=== PATIENT | female | born 1935 | race Caucasian/White ===

== ENCOUNTER 2021-03-19 20:53 | Inpatient (IN) | payer MEDICARE, OTHER ==
[~2021-03-19] VITALS: Ht 165.1 cm; Wt 68.0 kg
--- NOTE | 2021-03-19 21:12 | NUR ---
Dr. Sheets at bedside for mse.
[2021-03-19] MEDS ORDERED: IV NORMAL SALINE 1000 ML BAG IV ONE (21:30)
[2021-03-19] MEDS ORDERED: ONDANSETRON 4 MG/2 ML VIAL IV ONE (21:30)
[2021-03-19] MEDS ORDERED: ONDANSETRON 4 MG/2 ML VIAL ONE (21:33)
[2021-03-19 21:42] LABS: HEMATOCRIT 36.6 % (31.2-41.9); MEAN CORPUSCULAR VOLUME 91.3 fL (75.5-95.3); PLATELET COUNT (AUTO) 213 K/uL (179-408)
[2021-03-19 21:50] LABS: CREATININE 1.3 mg/dL (0.6-1.3); POTASSIUM 3.9 mmol/L (3.5-5.1)
--- NOTE | 2021-03-19 21:50 | NUR ---
Pt taken to CT
[2021-03-19 21:55] LABS: BILIRUBIN,DIRECT 0.1 mg/dL (0.0-0.2); BILIRUBIN,TOTAL 0.5 mg/dL (0.2-1.0); TOTAL PROTEIN, SERUM 7.1 g/dL (6.4-8.2)
[2021-03-19 22:00] LABS: CREATINE KINASE, TOTAL 40 U/L (26-192); LIPASE 133 U/L (73-393); MAGNESIUM 1.7 mg/dL (1.8-2.4); PHOSPHOROUS 2.1 mg/dL (2.5-4.9)
--- NOTE | 2021-03-19 22:00 | NUR ---
Patient brought in by [facility] from home for complaint of hyperglycemia w/ bgc on the field of 355. Patient c/o nausea, had 1 episode of vomiting prior to arrival and was given 4mg zofran ivp by [facility]/ pt's states he gave 6 units of insulin at home at 1600, he doesn't remember what kind of insulin.
[2021-03-19 22:06] LABS: THYROID STIMULATING HORMONE 7.834 mIU/mL (0.358-3.740)
[2021-03-19] MEDS ORDERED: MAGNESIUM OXIDE 400 MG TABLET PO ONE (22:30)
[2021-03-19] MEDS ORDERED: INSULIN REGULAR, HUMAN 300 UNIT/3 ML VIAL IV ONE (23:30)
--- NOTE | 2021-03-19 23:30 | NUR ---
Pt resting comfortably in bed with eyes closed. Vss. Nad. Will continue to monitor.
[2021-03-19 23:46] LABS: ABG BASE EXCESS -6.4 mmol/L; ABG HCO3 17.2 mmol/L; ABG PCO2 28.3 mmHg (35.0-45.0); ABG PH 7.401 (7.350-7.450); ABG PO2 65.1 mmHg (75.0-100.0); ABG SITE RIGHT RADIAL; ABG TOTAL HEMOGLOBIN 11.6 G/dL (12.0-16.0); COHb 1.8 % (0.5-1.5); MetHb 0.4 % (0.0-1.5); O2Hb 89.7 % (94.0-97.0); VENT MODE ROOM AIR
[2021-03-19 23:49] LABS: *BILIRUBIN,URIN NEGATIVE (NEGATIVE); *BLOOD, URINE NEGATIVE (NEGATIVE); *CLARITY,URINE CLEAR (CLEAR); *COLOR,URINE YELLOW (YELLOW); *KETONES,URINE 2+ (NEGATIVE); *UROBILINOGEN,URINE 0.2 E.U./dl (NORMAL); LEUKOCYTE ESTERASE ,URINE NEGATIVE (NEGATIVE); NITRITE, URINE NEGATIVE (NEGATIVE); UGLUCOSE 3+ (NEGATIVE)
--- NOTE | 2021-03-19 23:53 | NUR ---
Patient's son and unable to recall home medication at this time. Unable obtain home meds.
[2021-03-20] MEDS ORDERED: IV NORMAL SALINE 1000 ML BAG IV ONE
--- NOTE | 2021-03-20 00:12 | NUR ---
Paged [employer] brand protection manager for admission, waiting for Dr Omid Fuller to call back.
[2021-03-20 00:14] LABS: CREATININE 1.2 mg/dL (0.6-1.3)
[2021-03-20] MEDS ORDERED: MAGNESIUM OXIDE 400 MG TABLET ONE (00:15)
[2021-03-20] MEDS ORDERED: INSULIN REGULAR, HUMAN 300 UNIT/3 ML VIAL ONE (00:16)
[2021-03-20 00:18] LABS: MAGNESIUM 1.5 mg/dL (1.8-2.4); PHOSPHOROUS 2.9 mg/dL (2.5-4.9)
--- NOTE | 2021-03-20 00:30 | NUR ---
Pt. sleeping intermittently. No changes in symptoms. Pt denies nausea. Will continue to monitor.
[2021-03-20 00:39] LABS: BACTERIA,URINE FEW /HPF (NONE SEEN); RBC,URINE 0-3 /HPF (0-3); SQUAMOUS EPITHELIAL CELL,UR FEW /HPF (NONE SEEN); WBC,URINE 0-3 /HPF (0-3)
[2021-03-20] MEDS ORDERED: IV NS 1000 ML 1,000 ML IV PRN (00:45)
[2021-03-20] MEDS ORDERED: HYDROCODONE/APAP 5-325MG TABLET PO PRN (00:45)
[2021-03-20] MEDS ORDERED: DEXTROSE 50% 50 ML DISP.SYRIN IV PRN (00:45)
[2021-03-20] MEDS ORDERED: ACETAMINOPHEN 325 MG TABLET PO PRN (00:45)
[2021-03-20] MEDS ORDERED: ONDANSETRON 4 MG/2 ML VIAL IV PRN (00:45)
--- NOTE | 2021-03-20 02:00 | NUR ---
Pt sleeping. Vss. Will continue to monitor.
--- NOTE | 2021-03-20 03:45 | NUR ---
Gave report to ÓSCAR Gomez.
[2021-03-20] MEDS: BLOOD SUGAR DIAGNOSTIC 1 EACH STRIP VI SCH ×3 (04:42→12:26)
--- NOTE | 2021-03-20 06:45 | NUR ---
RECEIVED REPORT FROM CAREN KEMP. PT IS UNDER THE DR TR[place], WITH DX: HYPER GLYCEMIA WITH KETOACIDOSES, LAST BS 142, ALERT ORIENTED X 2, CONTINENT, AMBULATING WITH ASSISTANCE, ON FULL LIQUIDS DIET, AN O2 AT 2 LPM VIA NC, FARSI SPEAKING, AND UNABLE TO INTERVIEW. CALL LIGHT WITHIN REACH.
[2021-03-20 07:47] VITALS: BP 138/47
--- NOTE | 2021-03-20 08:00 | NUR ---
PT IN BED RESTING, ON O2 VIA NC AT 2L. SATURATING AT 98%. NO SIGNS OF DISTRESS, NO REPORTS OF PAIN AT THIS TIME. PT FARSI SPEAKING, FAMILY AT BEDSIDE. IV ON THE LEFT AC 20G. BED LOW AND LOCKED, CALL LIGHT WITHIN REACH, WILL CONTINUE TO MONITOR.
[2021-03-20] MEDS ORDERED: PIOG15TA8 PO (09:00)
[2021-03-20] MEDS ORDERED: PANTOPRAZOLE SODIUM 40 MG VIAL IV SCH (09:00)
[2021-03-20] MEDS: INSULIN REGULAR, HUMAN 300 UNIT/3 ML VIAL SQ PRN ×2 (09:05→12:28)
[2021-03-20 11:15] VITALS: BP 111/48
--- NOTE | 2021-03-20 13:45 | NUR ---
PT WAS ADAMANT ABOUT LEAVING HOSPITAL, BECAUSE THE HOSPITALIST WAS NOT THERE WHEN HE WANTED HER TO BE. PT AND FAMILY WAS INFORMED OF WHEN HOSPITALIST WAS TO BE COMING. DECIDED TO LEAVE AND MISSED THE HOSPITALIST VISIT. HOSPITALIST WAS NOTIFIED OF THE SITUATION AND SAID SHE WILL CALL THE SON TO GIVE UPDATES ON THE MOM (PT). UPON HE HUSBANDS RETURN TO THE PT ROOM HE WANTED TO LEAVE AMA. PT AND FAMILY GIVEN INFORMATION AND EDUCATION ABOUT DIAGNOSIS AND LEAVING AMA. AMA FORMS SIGNED, RELEASE OF INFO SIGNED FOR MEDICAL RECORDS. PT TAKEN TO CAR VIA WHEELCHAIR, PT LEFT WITH ALL BELONGINGS AND PAPERWORK. HOSPITALIST MADE AWARE.
== END 2021-03-20 13:45 | disposition left against medical advice (07) | DRG 637 ==
LOC: ER 20:53 → TELE3 03-20 04:24 → MEDSURG3 03-20 11:00
PROVIDERS: ADMIT Registered Nurse; ATTEND Registered Nurse
DX: E11.10 Type 2 diabetes mellitus with ketoacidosis without coma (principal); J96.01 Acute respiratory failure with hypoxia; N17.9 Acute kidney failure, unspecified; I50.1 Left ventricular failure, unspecified; E83.42 Hypomagnesemia; E78.5 Hyperlipidemia, unspecified; E83.39 Other disorders of phosphorus metabolism; I11.0 Hypertensive heart disease with heart failure; Z87.891 Personal history of nicotine dependence; Z20.822 Contact with and (suspected) exposure to COVID-19; I35.0 Nonrheumatic aortic (valve) stenosis; Z79.84 Long term (current) use of oral hypoglycemic drugs
CPT/HCPCS: 36415; 36600; 70030-TC; 70450; 71045; 83690; 83735; 83930; 84100; 84443; 85025; 85730; 93005; A4663; C9113; G0378; J1815; J2405; J7030